=== PATIENT | female | born 1990 | race Hispanic/Latino ===

== ENCOUNTER 2024-10-28 01:06 | Emergency (ER) | payer BC ==
[~2024-10-28] VITALS: Ht 152.4 cm; Wt 70.3 kg
[2024-10-28] MEDS: LACTATED RINGERS 1000ML IV STA (01:26)
--- NOTE | 2024-10-28 01:28 | ERN ---
General Chief Complaint: Fatigue Stated Complaint: WEAKNESS AND NAUSEA Time Seen by MD: 01:16 Source: patient History of Present Illness Initial Comments Patient is a healthy 34-year-old female who found herself on the floor with unremitting nausea vomiting and extreme weakness. No diarrhea. She states no urinary symptoms. Allergies: Coded Allergies: No Known Drug Allergies (Unverified Allergy, Unknown, 10/28/24) Past Medical History Past Medical History: No Pertinent History Medical History Other: Patient states she has to ovarian cysts one on each Past Surgical History: None Constitutional: (-) chills, (-) diaphoresis, (-) fever, (-) malaise, (-) weakness, (-) other documentation EENTM: (-) eye pain, (-) blurred vision, (-) tearing, (-) double vision, (-) ear pain, (-) ear discharge, (-) nose pain, (-) nose congestion, (-) throat pain, (-) Throat swelling, (-) mouth pain, (-) tooth pain, (-) mouth swelling, (-) other documentation Respiratory: (-) cough, (-) orthopnea, (-) short of breath, (-) stridor, (-) wheezing, (-) other documentation Cardiovascular: (-) chest pain, (-) edema, (-) palpitations, (-) syncope, (-) dyspnea on exertion, (-) other documentation Gastrointestinal/Abdominal: (+) nausea, (+) vomiting Genitourinary: (-) vaginal discharge, (-) vaginal bleeding, (-) dysuria, (-) frequency, (-) hematuria, (-) pain, (-) other documentation Musculoskeletal: (-) Neck pain, (-) back pain, (-) Flank Pain, (-) joint pain, (-) joint swelling, (-) muscle pain, (-) muscle stiffness, (-) gout, (-) other documentation Neuro: (-) altered mental status, (-) headache, (-) syncope, (-) paralysis, (-) numbness, (-) seizure, (-) pre-existing deficit, (-) tremors, (-) weakness, (-) dizziness, (-) slurred speech, (-) vertigo, (-) other documentation Physical Exam General Appearance: (+) no apparent distress Orientation: (+) oriented x 3 Head/Face Trauma: No Eye: bilateral eye normal inspection, bilateral eye PERRL, bilateral eye EOMI Ear, Nose, Throat: (+) hearing grossly normal, (+) normal ENT inspection, (+) moist mucous membraine Neck: (+) normal inspection, (+) supple, (+) full range of motion Respiratory: (+) chest non-tender, (+) lungs clear, (+) well ventilated Heart: (+) regular, (+) no gallop Vascular: (+) no edema, (+) normal peripheral pulse Gastrointestinal: (+) soft, (+) non-tender, (+) no organomegaly, (+) bowel sound present Results Laboratory and Microbiology Lab and Micro Result Laboratory Tests Test 10/28/24 01:38 10/28/24 03:32 White Blood Count 10.1 K/uL (4.8-10.8) Red Blood Count 4.50 MIL/uL (4.00-5.50) Hemoglobin 12.9 g/dL (12.0-16.0) Hematocrit 39.4 % (36-48) Mean Corpuscular Volume 87.6 fL (79-99) Mean Corpuscular Hemoglobin 28.7 pg (27.0-33.0) Mean Corpuscular Hemoglobin Concent 32.7 g/dL (32.0-36.0) Red Cell Distribution Width 14.0 % (11.0-15.5) Platelet Count 326 K/uL (130-400) Mean Platelet Volume 9.5 fL (7.5-10.5) Immature Granulocyte % (Auto) 0.2 % (0-1) Neutrophils (%) (Auto) 72.2 % (40.0-77.0) Lymphocytes (%) (Auto) 19.5 % (21.0-51.0) L Monocytes (%) (Auto) 6.1 % (3.0-13.0) Eosinophils (%) (Auto) 1.6 % (0.0-8.0) Basophils (%) (Auto) 0.4 % (0.0-5.0) Neutrophils # (Auto) 7.3 K/uL (1.8-7.7) Lymphocytes # (Auto) 2.0 K/uL (1.0-4.8) Monocytes # (Auto) 0.6 K/uL (0.1-1.0) Eosinophils # (Auto) 0.16 K/uL (0.00-0.70) Basophils # (Auto) 0.04 K/uL (0.00-0.20) Absolute Immature Granulocyte (auto 0.02 K/uL (0-1) Nucleated Red Blood Cells 0.0 % (0.0-0.19) Sodium Level 137 mmol/L (136-145) Potassium Level 3.5 mmol/L (3.5-5.1) Chloride Level 101 mmol/L (101-111) Carbon Dioxide Level 27 mmol/L (21-32) Blood Urea Nitrogen 11 mg/dL (7-18) Creatinine 0.5 mg/dL (0.5-1.0) Glomerular Filtration Rate Calc 127 mL/min (>90) Random Glucose 126 mg/dL (70-105) H Total Calcium 8.9 mg/dL (8.5-10.1) Urine Color LIGHT-YELLOW (YELLOW) Urine Appearance CLEAR (CLEAR) Urine pH 6.5 (5.0-8.0) Urine Specific [place] 1.021 (1.001-1.031) Urine Protein NEGATIVE mg/dL (NEGATIVE) Urine Glucose (UA) NEGATIVE mg/dL (NEGATIVE) Urine Ketones NEGATIVE mg/dL (NEGATIVE) Urine Occult Blood MODERATE (NEGATIVE) H Urine Nitrate NEGATIVE (NEGATIVE) Urine Bilirubin NEGATIVE mg/dL (NEGATIVE) Urine Urobilinogen 0.2 mg/dL (0.2-1.0) Urine Leukocyte Esterase 25 Jose J/uL (NEGATIVE) H Urine RBC 2-5 /HPF (0-1) H Urine WBC 6-10 /HPF (0-1) H Urine Squamous Epithelial Cells FEW /HPF (0-2) Urine Amorphous Crystals (Auto) RARE /LPF (None Seen) Urine Bacteria RARE /HPF (None Seen) Urine HCG, Qualitative NEGATIVE (NEGATIVE) MDM Differential for this condition could be gastroenteritis dehydration cardiac arrhythmia food poisoning urinary tract infection . I will start by giving her fluid ordering labs and checking her urine. Patient feels better after receiving a L of fluid. Her CBC is normal her chemistry panel is normal her urine has blood in it and some esterase activity. I will give her a prescription for Keflex for a presumed UTI. ED Course Orders Procedure Category Date Status Time Lactated Ringers PHA 10/28/24 Complete 1000ml (Lactated 01:26 Basic Metabolic Panel LAB 10/28/24 Complete 01:26 Cbc With Differential LAB 10/28/24 Complete 01: Urinalysis Profile LAB 10/28/24 Complete 01:26 ,Urine Test LAB 10/28/24 Complete 01:26 12 Lead Ekg Tracing- EKG 10/28/24 Complete Technical 01:30 Culture Urine JASON 10/28/24 In Process 03:32 Current Medications Medications (Trade) Dose Ordered Sig/Pacheco Route PRN Reason Start Time Stop Time Status Last Admin Dose Admin Lactated Ringer's (Lactated Ringers 1000ml) 1,000 ml BOLUS STAT IV 10/28/24 01:26 10/28/24 03:25 DC 10/28/24 01:26 Vital Signs Date Time Temp Pulse Resp B/P (MAP) Pulse Ox O2 Delivery O2 Flow Rate FiO2 10/28/24 02:52 98.2 88 18 125/76 99 Room Air* 0 21 10/28/24 01:10 98.4 99 19 137/77 99 Room Air 0 DX & DISP Disposition: Discharge Departure Impression: Primary Impression: UTI (urinary tract infection) Condition: Stable Scripts Cephalexin Monohydrate (Keflex) 500 Mg Cap 500 MG PO QID for 7 Days, #28 CAP Prov: ROB RODRIGUEZ MD 10/28/24 Additional Instructions: You have a urinary tract infection things that would help we will to drink lots of cranberry juice drink lots of fluids. I have sent a prescription to your pharmacy you should be able to pick it up in the morning. Please return if you have fevers chills worsening symptoms, you should start to feel better in the next day or two. Referrals: NONE (PCP) ROB RODRIGUEZ MD Oct 28, 2024 01:28
--- NOTE | 2024-10-28 01:40 | EKG ---
[facility] Test Date: 2024-10-28 Test Time: 01:37:28 Pat Name: ANDI QUIROGA Department: [facility] Room: Gender: F Bosom Presser: [id number] : 1990 Requested By: ROB RODRIGUEZ Order Number: [id number] Reading MD: Nico Gomez Measurements Intervals [place] Rate: 84 P: 49 MT: 146 QRS: 67 QRSD: 81 T: 2 QT: 386 QTc: 457 Interpretive Statements Sinus rhythm Probable left atrial enlargement No previous ECG available for comparison Electronically Signed On 10-28-2024 10:19:35 CDT by Nico Gomez Please click the below link to view image of tracing.
[2024-10-28 01:45] LABS: BASOPHILS # (AUTO) 0.04 K/uL (0.00-0.20); BASOPHILS % (AUTO) 0.4 % (0.0-5.0); EOSINOPHILS # (AUTO) 0.16 K/uL (0.00-0.70); EOSINOPHILS % (AUTO) 1.6 % (0.0-8.0); HEMATOCRIT 39.4 % (36-48); IMMATURE GRANULOCYTE ABSOLUTE 0.02 K/uL (0-1); LYMPHOCYTES % (AUTO) 19.5 % (21.0-51.0); MEAN CORPUSCULAR HEMOGLOBIN 28.7 pg (27.0-33.0); MEAN CORPUSCULAR HGB CONC 32.7 g/dL (32.0-36.0); MEAN CORPUSCULAR VOLUME 87.6 fL (79-99); MONOCYTES # (AUTO) 0.6 K/uL (0.1-1.0); MONOCYTES % (AUTO) 6.1 % (3.0-13.0); NEUTROPHILS # (AUTO) 7.3 K/uL (1.8-7.7); NEUTROPHILS % (AUTO) 72.2 % (40.0-77.0); PLATELET COUNT (AUTO) 326 K/uL (130-400); WHITE BLOOD COUNT (AUTO) 10.1 K/uL (4.8-10.8)
[2024-10-28 01:54] LABS: CREATININE 0.5 mg/dL (0.5-1.0); POTASSIUM 3.5 mmol/L (3.5-5.1)
[2024-10-28 03:45] LABS: APPEARANCE,URINE CLEAR (CLEAR); BILIRUBIN,URINE NEGATIVE (NEGATIVE); COLOR,URINE LIGHT-YELLOW (YELLOW); GLUCOSE, URINE (UA) NEGATIVE (NEGATIVE); KETONES,URINE NEGATIVE (NEGATIVE); LEUKOCYTE ESTERASE ,URINE 25 Leu/uL (NEGATIVE); NITRATE,URINE NEGATIVE (NEGATIVE); OCCULT BLOOD,URINE MODERATE (NEGATIVE); PH,URINE 6.5 (5.0-8.0); PROTEIN,URINE NEGATIVE (NEGATIVE); UROBILINOGEN,URINE 0.2 mg/dL (0.2-1.0)
[2024-10-28 03:52] LABS: ADD UA MICROSCOPIC YES
[2024-10-28 03:53] LABS: BACTERIA,URINE RARE /HPF (None Seen); MUCUS,URINE RARE LPF (None Seen); SQUAMOUS EPITHELIAL CELL,UR FEW /HPF (0-2)
[2024-10-28 03:55] LABS: HCG,QUALITATIVE URINE NEGATIVE (NEGATIVE)
[2024-10-28] MEDS ORDERED: CEPH500B PO (04:21)
[2024-10-28 04:46] VITALS: BP 131/70; PULSE 73; RESP 18; TEMP 98.3; O2SAT 99
== END 2024-10-28 05:10 | disposition home or self-care (01) ==
LOC: EDH 01:06 → EDBD 01:06 → EDH 05:10
DX: N39.0 Urinary tract infection, site not specified (principal)
CPT/HCPCS: 99284; 96360; 96361; 80048; 85025; 87086 ×2; 87186; 81001; 81025; 36415; 93005; J7120